=== PATIENT | female | born 1950 | race Caucasian/White ===

== ENCOUNTER 2018-10-03 18:41 | Emergency (ER) | payer OTHER ==
[~2018-10-03] VITALS: Ht 152.4 cm; Wt 65.3 kg
[2018-10-03 18:55] VITALS: BP 151/72
--- NOTE | 2018-10-03 19:10 | NUR ---
PT BIB FAMILY TO THE ED WITH THE CHIEF C/O RIGHT ARM PPAIN FOR A WEEK. SWOLLEN RIGHT FOREARM NOTED. +CMS. REPORTS PAIN ON MOVING OR TOUCHING ARM. PT WAS FELL A WEEK AGO FACING DOWN ON RIGHT ARM. PASSED OUT [facility] BUT NOT SEEN BY DOCTOR. PT DENIES DIZZINESS, N/V. DENIES ANY OTHER PROBLEM AT THIS TIME. STATES PAIN OF 7/10 AT THIS TIME.
--- NOTE | 2018-10-03 19:18 | NUR ---
REPORT GIVEN TO ADJUNCT FACULTY INSTRUCTOR RN FOR CONTINUITY OF CARE.
--- NOTE | 2018-10-03 19:19 | NUR ---
RECEIVED REPORT FROM KARYN VANEGAS FOR CONTINUITY OF CARE. PT RESTING IN BED WITH FAMILY MEMBER AT BEDSIDE AT THIS MOMENT. VSS.
[2018-10-03 20:50] VITALS: BP 147/71
== END 2018-10-03 20:50 | disposition home or self-care (01) ==
LOC: MED 18:41
DX: S52.121A Displaced fracture of head of right radius, initial encounter for closed fracture (principal); E11.9 Type 2 diabetes mellitus without complications; I10 Essential (primary) hypertension; M19.90 Unspecified osteoarthritis, unspecified site; Z98.62 Peripheral vascular angioplasty status; W01.0XXA Fall on same level from slipping, tripping and stumbling without subsequent striking against object, initial encounter; Y93.89 Activity, other specified; Y92.89 Other specified places as the place of occurrence of the external cause; Y99.8 Other external cause status
CPT/HCPCS: 29105; 73080; 73090; 73130; 99283

== ENCOUNTER 2022-03-30 07:16 | Observation (INO) | payer OTHER ==
[~2022-03-30] VITALS: Ht 165.1 cm; Wt 68.0 kg
[2022-03-30 07:38] VITALS: BP 182/75
--- NOTE | 2022-03-30 07:38 | NUR ---
PT AMBULATED TO BED 06 AT THIS TIME
--- NOTE | 2022-03-30 07:49 | NUR ---
Dr. Rodriguez at bedside evaluating patient at bedside.
[2022-03-30] MEDS ORDERED: ONDANSETRON 4 MG/2 ML VIAL IVP ONE (07:50)
[2022-03-30] MEDS ORDERED: MORPHINE SULFATE 4 MG/ML SYR IVP ONE ×2 (07:50→08:50)
[2022-03-30] MEDS ORDERED: ASPIRIN 325 MG TAB PO ONE (07:50)
--- NOTE | 2022-03-30 08:21 | NUR ---
IV ESTABLISHED TO RIGHT AC WITH 20G. BLOOD DRAWN AND SENT TO LAB. TRINY COLLECTED AND SENT TO LAB
[2022-03-30 08:35] LABS: BASOPHILS % (AUTO) 0.6 % (0.0-2.0); EOSINOPHILS # (AUTO) 0.2 K/uL (0-0.4); EOSINOPHILS % (AUTO) 2.8 % (0.0-4.0); HEMATOCRIT 33.8 % (36-48); HEMOGLOBIN 11.2 g/dL (12.0-16.0); LYMPHOCYTES # (AUTO) 2.2 K/uL (2.5-16.5); LYMPHOCYTES % (AUTO) 28.3 % (20.5-51.1); MEAN CORPUSCULAR HEMOGLOBIN 26 pg (27-31); MEAN CORPUSCULAR HGB CONC 33 g/dL (33-37); MONOCYTES # (AUTO) 0.7 K/uL (0.8-1.0); MONOCYTES % (AUTO) 8.3 % (1.7-9.3); NEUTROPHILS # (AUTO) 4.7 K/uL (1.8-7.7); PLATELET COUNT (AUTO) 254 K/uL (140-450); RED BLOOD CELL COUNT(AUTO) 4.33 MIL/uL (4.20-5.40); RED CELL DISTRIBUTION WIDTH 15.2 % (11.6-13.7); WHITE BLOOD COUNT (AUTO) 7.8 K/uL (4.8-10.8)
[2022-03-30 08:47] LABS: PROTHROMBIN TIME 9.5 secs (10.8-13.4)
[2022-03-30] MEDS ORDERED: FAMOTIDINE 20 MG/2 ML VIAL IVP ONE (08:50)
--- NOTE | 2022-03-30 08:50 | NUR ---
pt c/o 11/17 abd pain radiating to right shoulder. dr jacobs aware. will carry out order
--- NOTE | 2022-03-30 08:52 | NUR ---
X-Ray at bedside.
--- NOTE | 2022-03-30 08:55 | NUR ---
71 Y/O female pt presents with chest pain radiating to abdomen. pt states feels like pins and needles sharp pain. pain level at an 8/10. pt stated mild weakness and pain is worse with food. denies any fevers or chills. NKA PMH- hypertension, insulin, diabetes, blood thinners, angioplasty 2013
[2022-03-30 09:14] LABS: ALBUMIN 3.4 g/dL (3.4-5.0); ANION GAP 13.8 (8-16); ASPARTATE AMINOTRANSFERASE 19 U/L (15-37); CARBON DIOXIDE 29.8 mmol/L (21-32); CHLORIDE 98 mmol/L (98-107); CREATININE 0.9 mg/dL (0.6-1.3); GLUCOSE 161 mg/dL (74-106); POTASSIUM 4.6 mmol/L (3.5-5.1); SODIUM SERUM 137 mmol/L (136-145); TOTAL BILIRUBIN 0.7 mg/dL (0.0-1.0); UREA NITROGEN, BLOOD 19 mg/dL (7-18)
--- NOTE | 2022-03-30 09:20 | NUR ---
Patient was takent to CT via gurney.
[2022-03-30 09:22] LABS: LIPASE 79 U/L (73-393)
--- NOTE | 2022-03-30 09:31 | NUR ---
Patient returned from CT.
[2022-03-30] MEDS ORDERED: metroNIDAZOLE 500 MG/NS PREMIX 100 ML IV ONE (10:45)
--- NOTE | 2022-03-30 10:49 | NUR ---
Dr. Farrell, admitting doctor, evaluating patient at bedside.
[2022-03-30] MEDS ORDERED: MORPHINE SULFATE 4 MG/ML SYR IVP PRN (11:00)
[2022-03-30] MEDS ORDERED: MAG SULF 2000 MG/WATER PREMIX 50 ML IV PRN (11:00)
[2022-03-30] MEDS ORDERED: ZOLPIDEM 5 MG TAB PO PRN (11:00)
[2022-03-30] MEDS ORDERED: KCL 20 MEQ/WATER INJ PREMIX 200 ML IV PRN (11:00)
[2022-03-30] MEDS ORDERED: ONDANSETRON 4 MG/2 ML VIAL IVP PRN (11:00)
[2022-03-30] MEDS ORDERED: ACETAMINOPHEN 325 MG TAB PO PRN (11:00)
[2022-03-30] MEDS ORDERED: POTASSIUM CHLORIDE 10 MEQ TABER PO PRN (11:00)
[2022-03-30] MEDS ORDERED: HYDROcodone/APAP 5/325 MG 1 TAB TAB PO PRN (11:00)
[2022-03-30] MEDS: NACL 0.9% 1,000 ML IV SCH ×2 (11:03→22:54)
--- NOTE | 2022-03-30 11:35 | NUR ---
Ultrasound at bedside.
[2022-03-30] MEDS: ATORVASTATIN 20 MG TAB PO SCH (12:42)
--- NOTE | 2022-03-30 12:46 | NUR ---
Called Tabatha, to ask for list of medication, she stated she will call me back with list.
--- NOTE | 2022-03-30 13:00 | NUR ---
Tabatha called back and gave a list of medication.
[2022-03-30] MEDS ORDERED: BISA-28 PO (14:09)
[2022-03-30] MEDS ORDERED: INSU100V19 SQ (14:09)
[2022-03-30] MEDS ORDERED: ATOR10TA PO (14:09)
[2022-03-30] MEDS ORDERED: BISA-227 PO (14:09)
[2022-03-30] MEDS ORDERED: CARV6.25 PO (14:09)
[2022-03-30] MEDS ORDERED: SENN-3 PO (14:09)
[2022-03-30] MEDS ORDERED: INSU100V9 SQ (14:09)
[2022-03-30] MEDS ORDERED: METF-1139 PO (14:09)
[2022-03-30] MEDS ORDERED: AMLO10TA89 PO (14:09)
--- NOTE | 2022-03-30 14:57 | NUR ---
Used [employer] to inform patient that she is currently NPO except meds.
--- NOTE | 2022-03-30 15:34 | NUR ---
Patient will be admitted to care of Dr. Farrell. Admited to Telemetry. Will go to room 106-A. Belongings list completed. Report to KARYN Neumann.
--- NOTE | 2022-03-30 15:35 | NUR ---
The patient's care was reviewed and supervised by Roxana Fuentse, RN, RN.
--- NOTE | 2022-03-30 16:32 | NUR ---
Admitted from , with chief complaint of , 71 y/o ,Female, Cooperative, oriented to call light, bed, phone,television, bathroom, smoking policy, visiting hours, procedures, ID bracelet on. Belongings list checked. PATIENT RECEIVED FROM ER VIA [facility] ONE OF STUFF , VSS , MONITOR APPLIED , A/OX4 , SAFETY PROACTION ON PLACE SIDE RAILS UP X3 , BED IN LOWER POSITION , CALL LIGHT WITHIN REACH , ON RT AC 20GAGE INTACT , SKIN INTACT NO EDEMA , PT STILL UNDER OBSERVE .
[2022-03-30] MEDS ORDERED: VALS160T2 PO (16:38)
[2022-03-30] MEDS ORDERED: GABA-636 PO (16:38)
[2022-03-30] MEDS ORDERED: INSULIN LISPRO SLIDING SCALE 100 UNITS/ML VIAL SUBQ PRN (16:55)
[2022-03-30 17:09] VITALS: BP 158/53
--- NOTE | 2022-03-30 19:04 | NUR ---
REPORT GIVE TO SALOME BOSS ALL HER QUESTION ANSWER
--- NOTE | 2022-03-30 19:05 | NUR ---
RECEIVED PT IN BED, AWAKE, ALERT AND ORIENTED X 4. DENIES PAIN, DENIES SHORTNESS OF BREATH. SKIN WARM AND DRY TO TOUCH. IVF INFUSING ORDERED. SAFETY PRECAUTIONS IN PLACE, CALL LIGHT IN REACH.
[2022-03-30 20:00] VITALS: BP 141/45
--- NOTE | 2022-03-30 20:18 | NUR ---
BLOOD SUGAR-262 MG/DL, INSULIN GIVEN ORDERED.
[2022-03-30] MEDS: BLOOD GLUCOSE MONITORING 1 DEV DEV FS SCH (20:20)
[2022-03-30] MEDS: carvediloL 6.25 MG TAB PO SCH (20:21)
[2022-03-30] MEDS ORDERED: INSULIN LANTUS 100 UNITS/ML 10 ML VIAL SUBQ SCH (21:00)
--- NOTE | 2022-03-30 22:03 | NUR ---
PT ASLEEP. BREATHING EVEN AND UNLABORED.
[2022-03-31] VITALS: BP 136/47
--- NOTE | 2022-03-31 | NUR ---
VITAL SIGNS TAKEN AND DOCUMENTED. REMINDED PT NPO NOW. PT VERBALLY AGREED.
[2022-03-31] MEDS: NACL 0.9% 1,000 ML IV SCH (02:47)
[2022-03-31 04:00] VITALS: BP 118/61
--- NOTE | 2022-03-31 04:21 | NUR ---
PATIENT IS ASLEEP. NO DISTRESS NOTED. CALL LIGHT IN REACH.
--- NOTE | 2022-03-31 06:28 | NUR ---
PATIENT IS ASLEEP. ALL NEEDS ATTENDED TO. NO DISTRESS NOTED. SAFETY PRECAUTIONS MAINTAINED, CALL LIGHT REMAINS WITHIN REACH.
[2022-03-31] MEDS: BLOOD GLUCOSE MONITORING 1 DEV DEV FS SCH (06:30)
--- NOTE | 2022-03-31 07:05 | NUR ---
RECEIVED REPORT FROM NIGHTSHIFT NURSE SALOME FOR CONTINUITY OF CARE. PT IN STABLE CONDITION.
[2022-03-31 07:27] LABS: ANION GAP 6.4 (8-16); CARBON DIOXIDE 30.7 mmol/L (21-32); CHLORIDE 102 mmol/L (98-107); CREATININE 0.9 mg/dL (0.6-1.3); GLUCOSE 152 mg/dL (74-106); POTASSIUM 4.1 mmol/L (3.5-5.1); SODIUM SERUM 135 mmol/L (136-145); UREA NITROGEN, BLOOD 15 mg/dL (7-18)
[2022-03-31 07:37] LABS: BASOPHILS % (AUTO) 0.5 % (0.0-2.0); EOSINOPHILS # (AUTO) 0.2 K/uL (0-0.4); EOSINOPHILS % (AUTO) 3.7 % (0.0-4.0); HEMATOCRIT 33.4 % (36-48); HEMOGLOBIN 11.1 g/dL (12.0-16.0); LYMPHOCYTES # (AUTO) 1.9 K/uL (2.5-16.5); LYMPHOCYTES % (AUTO) 28.9 % (20.5-51.1); MEAN CORPUSCULAR HEMOGLOBIN 26 pg (27-31); MEAN CORPUSCULAR HGB CONC 33 g/dL (33-37); MEAN CORPUSCULAR VOLUME 78.4 fL (80-94); MONOCYTES # (AUTO) 0.5 K/uL (0.8-1.0); MONOCYTES % (AUTO) 8.1 % (1.7-9.3); NEUTROPHILS % (AUTO) 58.8 % (42.2-75.2); PLATELET COUNT (AUTO) 255 K/uL (140-450); RED BLOOD CELL COUNT(AUTO) 4.26 MIL/uL (4.20-5.40); RED CELL DISTRIBUTION WIDTH 15.2 % (11.6-13.7); WHITE BLOOD COUNT (AUTO) 6.7 K/uL (4.8-10.8)
--- NOTE | 2022-03-31 07:45 | NUR ---
ADMINISTERED 2GM MAG-RIDER PER PRN PROTOCOL FOR MAG LEVEL OF 1.4. PT COMPLAINED OF MILD HEADACHE AND ASKED FOR TOWEL HEAD COVER.
[2022-03-31] MEDS: carvediloL 6.25 MG TAB PO SCH (08:34)
[2022-03-31] MEDS: ATORVASTATIN 20 MG TAB PO SCH (08:35)
--- NOTE | 2022-03-31 08:35 | NUR ---
PT COMPLAINED OF HEADACHE, MEDICATED PRN TYLENOL.
[2022-03-31] MEDS ORDERED: ASPIRIN 81 MG TAB.CHEW PO SCH (09:00)
--- NOTE | 2022-03-31 10:10 | NUR ---
DR. DOMINGUEZ IN TO SEE PT, PT CLEARED BY CARDIAC STANDPOINT.
[2022-03-31] MEDS ORDERED: CIPR500T4 PO (10:19)
[2022-03-31] MEDS ORDERED: ASPI81CT95 PO (10:19)
[2022-03-31] MEDS ORDERED: ATOR20TA40 PO (10:19)
[2022-03-31] MEDS ORDERED: METR-435 PO (10:19)
[2022-03-31 11:00] VITALS: BP 150/68
--- NOTE | 2022-03-31 11:13 | NUR ---
PATIENT HAS BEEN SCREENED AND CATEGORIZED MODERATE NUTRITION RISK. PATIENT WILL BE SEEN WITHIN 3-5 DAYS OF ADMISSION. 04/02/2212/26/22 REVIEWED BY JOSE PAINTING RD
--- NOTE | 2022-03-31 11:40 | NUR ---
REVIEWED AND DISCUSSED PT DISCHARGE PAPERWORK AND INSTRUCTIONS. PT VERBALIZED UNDERSTANDING AND SIGNED ALL FORMS. PT'S SON AT THE BEDSIDE, IV REMOVED AND DRESSED. PT IN STABLE CONDITION.
[2022-04-01] MEDS ORDERED: PANTOPRAZOLE 40 MG TABEC PO SCH (09:00)
== END 2022-03-31 11:35 | disposition home or self-care (01) ==
LOC: MED 07:16 → MTU 10:59
PROVIDERS: ADMIT Internal Medicine; ATTEND Internal Medicine
DX: R07.89 Other chest pain (principal); Z20.822 Contact with and (suspected) exposure to COVID-19; K52.9 Noninfective gastroenteritis and colitis, unspecified; I10 Essential (primary) hypertension; E11.9 Type 2 diabetes mellitus without complications; I25.119 Atherosclerotic heart disease of native coronary artery with unspecified angina pectoris; N28.89 Other specified disorders of kidney and ureter; E78.5 Hyperlipidemia, unspecified; I35.0 Nonrheumatic aortic (valve) stenosis; Z79.899 Other long term (current) drug therapy
CPT/HCPCS: 36415; 71045; 74176; 76770; 80048; 80053; 82948; 83605; 83690; 83735; 83880; 84484; 85025; 85384; 85610; 85730; 87040; 87081; 87426; 93005; 96361; 96365; 96366; 96367; 96372; 96375; 96376; 99285; C8929; G0378; J1815; J2270; J2405; J3475; J3490; Q0092

== ENCOUNTER 2022-09-07 14:14 | Inpatient (IN) | payer OTHER ==
[~2022-09-07] VITALS: Ht 157.5 cm; Wt 69.9 kg
[~2022-09-07 14:14] MED LIST: ACET-10509 PO; AMLO10TA89 PO; ASPI81CT95 PO; ATOR20TA40 PO; BISA-28 PO; CARV6.25 PO; CIPR500T4 PO; GABA-636 PO; INSU100V19 SQ; INSU100V9 SQ; LID5T TP; MECL-303 PO; METF-1139 PO; METH-1691 PO; METR-435 PO; SENN-3 PO; VALS160T2 PO
[2022-09-07 14:44] VITALS: BP 158/88
--- NOTE | 2022-09-07 15:24 | NUR ---
PT AMBULATED TO BED 02
[2022-09-07 16:38] LABS: BASOPHILS % (AUTO) 0.5 % (0.0-2.0); EOSINOPHILS # (AUTO) 0.3 K/uL (0-0.4); EOSINOPHILS % (AUTO) 3.7 % (0.0-4.0); HEMATOCRIT 33.6 % (36-48); HEMOGLOBIN 11.2 g/dL (12.0-16.0); LYMPHOCYTES # (AUTO) 1.7 K/uL (2.5-16.5); LYMPHOCYTES % (AUTO) 23.2 % (20.5-51.1); MEAN CORPUSCULAR HEMOGLOBIN 26 pg (27-31); MEAN CORPUSCULAR HGB CONC 34 g/dL (33-37); MEAN CORPUSCULAR VOLUME 78.8 fL (80-94); MONOCYTES # (AUTO) 0.5 K/uL (0.8-1.0); MONOCYTES % (AUTO) 7.1 % (1.7-9.3); NEUTROPHILS # (AUTO) 4.9 K/uL (1.8-7.7); NEUTROPHILS % (AUTO) 65.5 % (42.2-75.2); PLATELET COUNT (AUTO) 219 K/uL (140-450); RED BLOOD CELL COUNT(AUTO) 4.26 MIL/uL (4.20-5.40); RED CELL DISTRIBUTION WIDTH 14.4 % (11.6-13.7); WHITE BLOOD COUNT (AUTO) 7.5 K/uL (4.8-10.8)
[2022-09-07 17:05] LABS: ALBUMIN 3.6 g/dL (3.4-5.0); ANION GAP 10.5 (8-16); ASPARTATE AMINOTRANSFERASE 19 U/L (15-37); CARBON DIOXIDE 30.7 mmol/L (21-32); CHLORIDE 98 mmol/L (98-107); CREATININE 0.9 mg/dL (0.6-1.3); GLUCOSE 303 mg/dL (74-106); POTASSIUM 4.2 mmol/L (3.5-5.1); SODIUM SERUM 135 mmol/L (136-145); TOTAL BILIRUBIN 0.8 mg/dL (0.0-1.0); UREA NITROGEN, BLOOD 15 mg/dL (7-18)
[2022-09-07] MEDS ORDERED: HYDROcodone/APAP 5/325 MG 1 TAB TAB PO PRN (17:55)
[2022-09-07] MEDS ORDERED: MAGNESIUM OXIDE 400 MG TAB PO PRN (17:55)
[2022-09-07] MEDS ORDERED: POTASSIUM CHLORIDE 10 MEQ TABER PO PRN (17:55)
[2022-09-07] MEDS ORDERED: ONDANSETRON 4 MG/2 ML VIAL IVP PRN (17:55)
[2022-09-07] MEDS ORDERED: ACETAMINOPHEN 325 MG TAB PO PRN (17:55)
[2022-09-07] MEDS ORDERED: MORPHINE SULFATE 2 MG/ML SYR IVP PRN (17:55)
[2022-09-07] MEDS ORDERED: MAG SULF 2000 MG/WATER PREMIX 50 ML IV PRN (17:55)
[2022-09-07] MEDS ORDERED: KCL 20 MEQ IN 100 mL PREMIX 200 ML IV PRN (17:55)
--- NOTE | 2022-09-07 20:00 | NUR ---
Patient will be admitted to care of MD Diaz. Admited to Tele unit. Will go to room 107A. Belongings list completed. Report to KARYN Julian.
--- NOTE | 2022-09-07 20:01 | NUR ---
PT TRANSPORTED TO 107A
--- NOTE | 2022-09-07 20:05 | NUR ---
RECEIVED A NEW ADMIT PT FROM , CAME IN VIA [facility] WITH A CHIEF COMPLAINTS OF FALL AND PAIN ON RIGHT ARM, DIAGNOSIS OF SYNCOPE. HISTORY OF HTN AND DM. PT IS AWAKE AND ALERT. PT HAS NO KNOWN ALLERGY. SHE IS A FULL CODE AND A BED REST. PT IS ON ROOM AIR WITH CARDIAC DIET. SHE IS CONTINENT. IV SITE IS ON LEFT AC 22G, INTACT AND PATENT.
--- NOTE | 2022-09-07 22:30 | NUR ---
PT IS IN ROOM 107A, PT REQUESTS TO MOVE TO OTHER ROOM DUE TO ROOMMATE, PT IN 107B, NOTED CONFUSE AND MOVE AROUND. PT MOVED TO ROOM 124B. PT AMBULATES INDEPENDENTLY WITH SUPERVISION.
--- NOTE | 2022-09-07 22:40 | NUR ---
RECEIVED REPORT FROM LAB RESULT FOR TROPONIN = 59. NOT REPORT TO DOCTOR DUE TO RESULT IS TRENDING DOWN.
[2022-09-07] MEDS ORDERED: DEXTROSE 50% 50 ML SYR IVP PRN (23:15)
[2022-09-08] MEDS: NACL 0.9% 1,000 ML IV SCH (02:30)
[2022-09-08 04:00] VITALS: BP 144/64
[2022-09-08 05:16] LABS: BASOPHILS % (AUTO) 0.5 % (0.0-2.0); EOSINOPHILS # (AUTO) 0.3 K/uL (0-0.4); EOSINOPHILS % (AUTO) 4.1 % (0.0-4.0); HEMATOCRIT 32.8 % (36-48); HEMOGLOBIN 10.9 g/dL (12.0-16.0); LYMPHOCYTES # (AUTO) 2.3 K/uL (2.5-16.5); LYMPHOCYTES % (AUTO) 34.7 % (20.5-51.1); MEAN CORPUSCULAR HEMOGLOBIN 26 pg (27-31); MEAN CORPUSCULAR HGB CONC 33 g/dL (33-37); MEAN CORPUSCULAR VOLUME 78.7 fL (80-94); MONOCYTES # (AUTO) 0.6 K/uL (0.8-1.0); MONOCYTES % (AUTO) 9.6 % (1.7-9.3); NEUTROPHILS # (AUTO) 3.4 K/uL (1.8-7.7); NEUTROPHILS % (AUTO) 51.1 % (42.2-75.2); PLATELET COUNT (AUTO) 218 K/uL (140-450); RED BLOOD CELL COUNT(AUTO) 4.17 MIL/uL (4.20-5.40); RED CELL DISTRIBUTION WIDTH 14.3 % (11.6-13.7); WHITE BLOOD COUNT (AUTO) 6.7 K/uL (4.8-10.8)
[2022-09-08 05:30] LABS: ALBUMIN 3.6 g/dL (3.4-5.0); ANION GAP 9.4 (8-16); ASPARTATE AMINOTRANSFERASE 15 U/L (15-37); CARBON DIOXIDE 32.1 mmol/L (21-32); CHLORIDE 102 mmol/L (98-107); CREATININE 0.9 mg/dL (0.6-1.3); GLUCOSE 158 mg/dL (74-106); MAGNESIUM 1.4 mg/dL (1.8-2.4); POTASSIUM 4.5 mmol/L (3.5-5.1); SODIUM SERUM 139 mmol/L (136-145); TOTAL BILIRUBIN 0.8 mg/dL (0.0-1.0); UREA NITROGEN, BLOOD 14 mg/dL (7-18)
[2022-09-08] MEDS: BLOOD GLUCOSE MONITORING 1 DEV DEV FS SCH ×4 (06:45→21:00)
--- NOTE | 2022-09-08 06:45 | NUR ---
BLOOD SUGAR CHECK = 122, NO SLIDING SCALE COVERAGE
[2022-09-08 08:00] VITALS: BP 167/52
--- NOTE | 2022-09-08 08:00 | NUR ---
GOT REPORT FROM THE NIGHT NURSE PT SLEEPING NO SOB.[id number]
[2022-09-08] MEDS: ENOXAPARIN 40 MG/0.4 ML SYR SUBQ SCH (08:58)
--- NOTE | 2022-09-08 09:06 | NUR ---
PATIENT HAS BEEN SCREENED AND CATEGORIZED LOW NUTRITION RISK. PATIENT WILL BE SEEN WITHIN 7 DAYS OF ADMISSION. 09/14/[address]
[2022-09-08] MEDS: hydrALAZINE 20 MG/ML VIAL IVP PRN (10:59)
--- NOTE | 2022-09-08 11:04 | NUR ---
HYDRALAZINE 10MG FROM THE 20MG IS GIVEN FOR HIGH BP.[id number]
[2022-09-08 12:00] VITALS: BP 157/69
[2022-09-08] MEDS: INSULIN LISPRO SLIDING SCALE 100 UNITS/ML VIAL SUBQ PRN ×3 (12:59→22:02)
[2022-09-08 16:00] VITALS: BP 103/76
--- NOTE | 2022-09-08 19:20 | NUR ---
HAND-OFF REPORT RECEIVED FROM LOTUS BOSS FOLLOWING BEDSIDE ROUNDS. REPORTED: 72 YO FEMALE WITH C/C FALL/RIGHT ARM PAIN; DX: SYNCOPE; HX; DM AND NKA. INDEPENDENT WITH BRP/GAIT STEADY. A/OX4. SR W/BBB. LUNGS [facility]. LBM 09/08/22. IV LAC SL 22GA. SKIN INTACT. CT OF HEAD-NEGATIVE. CT OF CERVICAL SPINE-NEGATIVE. PLAN: EVAL ELECTROLYTES AND SUPPLEMENT NEEDED.
--- NOTE | 2022-09-08 19:29 | NUR ---
gave report to the night nurse , pt is resting without any discomfort.[email or web address]
[2022-09-08 20:00] VITALS: BP 159/60
--- NOTE | 2022-09-08 22:15 | NUR ---
STATED H/A 07/18. TYLENOL 650 MG PO
[2022-09-08] MEDS ORDERED: NACL 0.9% 1,000 ML IV ONE (22:30)
--- NOTE | 2022-09-08 23:07 | NUR ---
TYLENOL EFFECTIVE IN HEADACHE RELIEF.04/19
[2022-09-09] VITALS: BP 147/63
--- NOTE | 2022-09-09 01:22 | NUR ---
BOLUS IV NS 1000 MG PRESENTLY HANGING VIA PUMP AT 999 ML/HR. TO BE FOLLOWED BY 2ND BAG AT 125ML/H Q 8H
--- NOTE | 2022-09-09 02:30 | NUR ---
BOLUS COMPLETED AND NS @ 125ML/H Q8 BEGAN.
[2022-09-09 04:00] VITALS: BP 155/58
[2022-09-09 05:29] LABS: BASOPHILS % (AUTO) 0.5 % (0.0-2.0); EOSINOPHILS # (AUTO) 0.2 K/uL (0-0.4); EOSINOPHILS % (AUTO) 3.2 % (0.0-4.0); HEMATOCRIT 34.1 % (36-48); HEMOGLOBIN 11.2 g/dL (12.0-16.0); LYMPHOCYTES # (AUTO) 2.3 K/uL (2.5-16.5); LYMPHOCYTES % (AUTO) 34.3 % (20.5-51.1); MEAN CORPUSCULAR HEMOGLOBIN 26 pg (27-31); MEAN CORPUSCULAR HGB CONC 33 g/dL (33-37); MEAN CORPUSCULAR VOLUME 78.8 fL (80-94); MONOCYTES # (AUTO) 0.6 K/uL (0.8-1.0); NEUTROPHILS # (AUTO) 3.5 K/uL (1.8-7.7); PLATELET COUNT (AUTO) 227 K/uL (140-450); RED BLOOD CELL COUNT(AUTO) 4.33 MIL/uL (4.20-5.40); RED CELL DISTRIBUTION WIDTH 14.4 % (11.6-13.7); WHITE BLOOD COUNT (AUTO) 6.7 K/uL (4.8-10.8)
[2022-09-09 05:42] LABS: ALBUMIN 3.2 g/dL (3.4-5.0); ANION GAP 9.9 (8-16); ASPARTATE AMINOTRANSFERASE 19 U/L (15-37); CARBON DIOXIDE 29.1 mmol/L (21-32); CHLORIDE 105 mmol/L (98-107); CREATININE 0.9 mg/dL (0.6-1.3); GLUCOSE 190 mg/dL (74-106); MAGNESIUM 1.6 mg/dL (1.8-2.4); SODIUM SERUM 140 mmol/L (136-145); TOTAL BILIRUBIN 0.8 mg/dL (0.0-1.0); UREA NITROGEN, BLOOD 14 mg/dL (7-18)
--- NOTE | 2022-09-09 06:00 | NUR ---
ACCU CHECKS THIS SHIFT 300/6 UNITS NEHAL @
[2022-09-09] MEDS: NACL 0.9% 1,000 ML IV SCH ×2 (06:30→14:31)
[2022-09-09] MEDS: BLOOD GLUCOSE MONITORING 1 DEV DEV FS SCH ×3 (06:41→16:30)
[2022-09-09] MEDS: INSULIN LISPRO SLIDING SCALE 100 UNITS/ML VIAL SUBQ PRN ×2 (06:42→14:41)
--- NOTE | 2022-09-09 07:00 | NUR ---
BLOOD SUGAR 182/HUMALOG 2U PER S.S GIVEN.
--- NOTE | 2022-09-09 07:05 | NUR ---
RECEIVED BEDSIDE REPORT FROM NIGHTSHIFT NURSE. PT IS ASLEEP IN BED, WOKE TO NAME AND TOUCH. NO SIGNS OF DISTRESS. PT BP HIGH, NIGHT NURSE INFORMED MD. MD ORDERED BP MEDS, WILL ADMINISTER. REORIENTED PT TO CALL LIGHT. WILL CONTINUE WITH CARE.
--- NOTE | 2022-09-09 07:30 | NUR ---
HAND-OFF REPORT TO ON-COMING A.M NURSE WILMER AFTER BEDSIDE ROUNDS PER CONTINUITY OF CARE. INFORMED RISING B/P THIS A.M AND SINUS DEVAUGHN DURING NOC LOW 50'S PT OBSERVED SLEEPING DEEPLY WITH APNEA-LIKE BREATHING PATTERNS, OTHERWISE ASYMPTOMATIC.SEE EKG PRINT OUT 0111. MOVED FROM ROOM 124B TO 119A INCOMPATIBLE WITH TALKATIVE ROOMMATE. RELINQUISHED CARE OF PT AT THIS TIME. PT STABLE.
[2022-09-09 08:00] VITALS: BP 195/70
[2022-09-09] MEDS ORDERED: ATORVASTATIN 20 MG TAB PO SCH (09:00)
[2022-09-09] MEDS ORDERED: ECOTRIN 81 MG TABEC PO SCH (09:00)
[2022-09-09] MEDS ORDERED: METOPROLOL 25 MG TAB PO SCH (09:00)
[2022-09-09] MEDS: ENOXAPARIN 40 MG/0.4 ML SYR SUBQ SCH (09:01)
[2022-09-09] MEDS: hydrALAZINE 20 MG/ML VIAL IVP PRN (10:44)
[2022-09-09 12:00] VITALS: BP 162/49
[2022-09-09 16:00] VITALS: BP 154/52
[2022-09-09] MEDS ORDERED: METO25TA PO (16:01)
[2022-09-09 16:05] VITALS: BP 162/49
--- NOTE | 2022-09-09 18:43 | NUR ---
PT INFORMED OF DISCHARGE. PT VERBALIZE UNDERSTANDING. DC PAPERWORK REVIEWED AND SIGNED. IV REMOVED, ID BAND REMOVED. PT IS WITH GRANDDAUGHTER AT BEDSIDE WAITING FOR SON TO COME PICK THEM UP. GRANDDAUGHTER STATES HE WILL BE ARRIVING SOON.
== END 2022-09-09 19:15 | disposition home or self-care (01) | DRG 204 ==
LOC: MED 14:14 → MTU 17:56
PROVIDERS: ADMIT Hospitalist; ATTEND Hospitalist
DX: R55 Syncope and collapse (principal); I24.8 Other forms of acute ischemic heart disease; R65.10 Systemic inflammatory response syndrome (SIRS) of non-infectious origin without acute organ dysfunction; I11.9 Hypertensive heart disease without heart failure; E83.42 Hypomagnesemia; R77.8 Other specified abnormalities of plasma proteins; I25.10 Atherosclerotic heart disease of native coronary artery without angina pectoris; E11.9 Type 2 diabetes mellitus without complications; Z20.822 Contact with and (suspected) exposure to COVID-19
CPT/HCPCS: 36415; 70450; 72125; 80053; 82948; 83735; 84484; 85025; 87081; 93005; 99285; J0360; J1650; J3475